=== PATIENT | male | born 1930 | race Caucasian/White ===

== ENCOUNTER 2018-04-27 06:25 | Day surgery (SDC) | payer MEDICARE, OTHER ==
[2018-04-26 16:21] LABS: BASOPHILS 0.4 % (0-2); EOSINOPHILS 0.9 % (0-7); HEMATOCRIT 42.5 % (42.0-54.0); HEMOGLOBIN 14.5 g/dL (13.5-17.5); IMMATURE GRANULOCYTES 0.3 % (0-5); LYMPHOCYTES 36.4 % (15-50); MCH 31.2 pg (26.0-34.0); MCHC 34.1 g/dL (31.0-37.0); MCV 91.4 fL (80.0-100.0); MEAN PLATELET VOLUME 10.1 fL (7.4-10.4); MONOCYTES 9.2 % (2-11); NEUTROPHILS 52.8 % (40-80); PLATELET COUNT 167 10x3/uL (130-400); RBC 4.65 10x6/uL (4.20-6.10); RDW 12.9 % (11.5-14.5)
[2018-04-26 16:32] LABS: APTT 29.7 SECONDS (22.8-39.4); INR 1.32 (0.85-1.17); PROTIME 15.9 SECONDS (11.6-15.0)
[2018-04-26 16:35] LABS: CALC OSMOLALITY 283 mosm/kg (275-300); CALCIUM 8.9 mg/dL (8.5-10.1); CARBON DIOXIDE 29.4 mmol/L (21.0-32.0); CHLORIDE - SERUM 105 mmol/L (98-107); GLUCOSE 106 mg/dL (74-106); POTASSIUM - SERUM 3.9 mmol/L (3.5-5.1); SODIUM 142 mmol/L (136-145); UREA NITROGEN 14 mg/dL (7-18); eGFR NON AFRICAN AMERICAN 75 mL/min (90-120)
--- NOTE | ~2018-04-27 | OP ---
PATIENT NAME: CAREY LIANG MEDICAL RECORD: [id number] :34 LOCATION:.[facility] ADMISSION DATE: SURGEON: RICKEY MESSER MD DATE OF OPERATION: 04/27/2018 SURGEON: Rickey Messer MD ANESTHESIA: TIVA by [place] Mcdonald CRNA. DIAGNOSIS: Elevated PSA of 5.51. PROCEDURE: Transrectal ultrasound and prostate biopsy. FINDINGS: 29-gram prostate with no hypoechoic areas. SPECIMENS: Prostate biopsy cores. BLOOD LOSS: Minimal. CLINICAL HISTORY: This is an 88-year-old male, who was found to have an elevated PSA. There is no family history of prostate cancer. He comes today to have a prostate biopsy performed. He is allergic to PENICILLIN and he was given Levaquin complaint investigations officer to the OR. DESCRIPTION OF PROCEDURE: The patient was given IV sedation. He was then placed into lithotomy position. The transrectal ultrasound probe was introduced and prostate size measurements were obtained. This came out at 29 grams. Sextant biopsies were obtained with at least 3 cores from each sextant. Once all the specimens were obtained, the procedure was terminated. The patient was awakened and brought back to the recovery room. TRANSINT:[id number] Voice Confirmation ID: [id number] DOCUMENT ID: [id number] RICKEY MESSER MD at 1246 CC: [id number] DICTATION DATE: 04/27/18 1017 SHOT BLAST EQUIPMENT OPERATOR: 04/27/18 1238 REG [facility] [address] [place] [address]
[~2018-04-27 06:25] MED LIST: COUMADIN5 MG PO; METOPROLOL TART25 MG; PRAVACHOL20 MG PO
[2018-04-27] MEDS ORDERED: BACTRIM 400-801 TAB PO (07:24)
== END 2018-04-27 12:30 | disposition home or self-care (01) ==
LOC: D.OPS 06:25 → D.PAN 09:00 → D.OPS 09:15 → D.PAN 09:15 → D.OPS 12:30
PROVIDERS: Anesthesiology
DX: R97.20 Elevated prostate specific antigen [PSA] (principal)

== ENCOUNTER → 2018-05-17 07:46 | Outpatient (CLI) | payer MEDICARE, OTHER ==
[~2018-05-17 07:46] MED LIST changes: +BACTRIM 400-801 TAB PO
== END | disposition home or self-care (01) ==
LOC: D.NM 07:46
DX: C61 Malignant neoplasm of prostate (principal)

== ENCOUNTER → 2018-12-14 13:23 | Outpatient (CLI) | payer MEDICARE, OTHER | END | disposition home or self-care (01) | LOC: D.LAB 13:23 | PROVIDERS: ATTEND Urology | DX: C61 Malignant neoplasm of prostate (principal) ==

== ENCOUNTER → 2019-04-27 11:43 | Outpatient (CLI) | payer MEDICARE, OTHER ==
[~2019-04-27 11:43] MED LIST changes: -METOPROLOL TART25 MG; +METOPROLOL TART25 MG PO
== END | disposition home or self-care (01) ==
LOC: D.LAB 11:43
PROVIDERS: ATTEND Urology
DX: C61 Malignant neoplasm of prostate (principal)

== ENCOUNTER 2019-05-24 06:47 | Day surgery (SDC) | payer MEDICARE, OTHER ==
[~2019-05-24] VITALS: Ht 170.2 cm; Wt 72.6 kg
[2019-05-24 07:00] LABS: BASOPHILS 0.4 % (0-2); EOSINOPHILS 1.3 % (0-7); HEMATOCRIT 41.8 % (42.0-54.0); HEMOGLOBIN 13.6 g/dL (13.5-17.5); IMMATURE GRANULOCYTES 0.3 % (0-5); LYMPHOCYTES 37.5 % (15-50); MCH 30.6 pg (26.0-34.0); MCHC 32.5 g/dL (31.0-37.0); MCV 94.1 fL (80.0-100.0); MONOCYTES 9.6 % (2-11); NEUTROPHILS 50.9 % (40-80); PLATELET COUNT 169 10x3/uL (130-400); RBC 4.44 10x6/uL (4.20-6.10); RDW 12.8 % (11.5-14.5); WBC 6.9 10x3/uL (4.8-10.8)
[2019-05-24 07:20] LABS: CALC OSMOLALITY 283 mosm/kg (275-300); CALCIUM 8.8 mg/dL (8.5-10.1); CARBON DIOXIDE 28.4 mmol/L (21.0-32.0); CHLORIDE - SERUM 107 mmol/L (98-107); CREATININE - SERUM 0.9 mg/dL (0.6-1.3); GLUCOSE 98 mg/dL (74-106); SODIUM 143 mmol/L (136-145); UREA NITROGEN 11 mg/dL (7-18); eGFR NON AFRICAN AMERICAN 85 mL/min (90-120)
[2019-05-24 07:28] LABS: INR 1.2 (0.85-1.17); PROTIME 14.6 SECONDS (11.6-15.0)
[2019-05-24 07:29] LABS: APTT 31.7 SECONDS (22.8-39.4)
[2019-05-24 08:34] VITALS: BP 128/78; Ht 170.2 cm; Wt 72.6 kg
--- NOTE | 2019-05-24 14:34 | OP ---
PATIENT NAME: CAREY LIANG MEDICAL RECORD: [id number] :32 LOCATION:[facility] ADMISSION DATE: SURGEON: ANUEL MESSER MD DATE OF OPERATION: 05/24/2019 SURGEON: Anuel Messer MD ANESTHESIA: General anesthesia by Joel Mullen CRNA. DIAGNOSIS: Left hydrocele. PROCEDURE: Left hydrocelectomy with Jaboulay procedure. SPECIMEN: Left hydrocele sac. BLOOD LOSS: Minimal. CLINICAL HISTORY: This is an 89-year-old male, who has a progressively enlarging left hydrocele. He wishes to have a left hydrocelectomy. He is on Coumadin for atrial fibrillation. We obtained permission to hold his Coumadin and cardiac clearance from Dr. Aguillon, cardiology. HE IS ALLERGIC TO PENICILLIN. He was given Levaquin IV television cabinet finisher to the OR. DESCRIPTION OF PROCEDURE: The patient was placed in supine position. He was then given induction of general anesthetic. He was prepped and draped. A midline incision was made in the median raphae. We then went down to the dartos fascia using the Bovie. The tunica vaginalis was incised using a #15 blade. The hydrocele fluid was evacuated using the suction. The incision was lengthened through the dartos fascia using Metzenbaum scissors. The testicle was then everted out through the scrotal incision. The tunica vaginalis on either side was pulled back behind the cord. The excess length of tunica vaginalis was excised using the Bovie. After stopping all bleeding points, the 2 halves of the tunica vaginalis were reapproximated to itself behind the cord. I made sure that there was not excessive constriction of the cord to compromise the blood supply. The appendix testis was excised. There were some cysts on the epididymis in this area and these were popped and allowed to drain. The testicle was then returned to its left hemiscrotum in the correct orientation. The dartos fascia was reapproximated using running 4-0 Vicryl. The skin was then reapproximated using simple interrupted 4-0 Monocryl. A 0.25% Marcaine with epinephrine was used for local anesthetic in the scrotal skin area. I will see the patient in followup in 2 weeks' time. TRANSINT:[id number] Voice Confirmation ID: [id number] DOCUMENT ID: [id number] ANUEL MESSER MD at 1434 CC: [id number] DICTATION DATE: 05/24/19 1130 DRESSAGE INSTRUCTOR: 05/24/19 1144 REG [facility] [address] [place] [id number]
== END 2019-05-24 13:35 | disposition home or self-care (01) ==
LOC: D.OPS 06:47
PROVIDERS: Anesthesiology; ATTEND Urology
DX: N43.3 Hydrocele, unspecified (principal); C61 Malignant neoplasm of prostate